=== PATIENT | female | born 1930 | race Caucasian/White ===

== ENCOUNTER 2016-12-04 09:36 | Inpatient (IN) | payer MEDICARE, MEDICAID ==
[~2016-12-04] VITALS: Ht 152.4 cm; Wt 146.2 kg
[~2016-12-04 09:36] MED LIST: ALEN70TA48 PO; AMLO2.5T PO; ATOR40TA28 PO; CITA20TA9 PO; FOLI1 PO; GABA-531 PO; LEVO100 PO; LINA290C PO; LISI-661 PO; LORA2TAB2 PO; OMEP20 PO; TRAZ-147 PO; VITAD1000 PO
[2016-12-04 10:22] LABS: BASOPHILS % (AUTO) 0.3 % (0.0-2.0); EOSINOPHILS % (AUTO) 0.3 % (1.0-6.0); HEMOGLOBIN 12.6 g/dL (12.0-16.0); LYMPHOCYTES # (AUTO) 1.4 K/uL (1.0-4.8); LYMPHOCYTES % (AUTO) 17.6 % (22.0-44.0); MEAN CORPUSCULAR HEMOGLOBIN 29.1 pg (26.0-34.0); MEAN CORPUSCULAR HGB CONC 32.4 G/dL (31.0-37.0); MEAN CORPUSCULAR VOLUME 90 fL (80-100); MONOCYTES # (AUTO) 0.3 K/uL (0.1-1.0); MONOCYTES % (AUTO) 4.5 % (2.0-9.0); NEUTROPHILS % (AUTO) 77.3 % (40.0-70.0); PLATELET COUNT (AUTO) 223 K/uL (150-450); RED BLOOD CELL COUNT(AUTO) 4.35 MIL/uL (4.00-5.20); RED CELL DISTRIBUTION WIDTH 16.5 % (11.5-14.5); WHITE BLOOD COUNT (AUTO) 7.7 K/uL (4.5-11.0)
[2016-12-04 10:31] LABS: ANION GAP 7 mmol/L (8-16); CALCIUM, TOTAL 8.6 mg/dL (8.8-10.5); CARBON DIOXIDE 28 mmol/L (22-29); CHLORIDE 104 mmol/L (98-107); CREATININE 0.89 mg/dL (0.60-1.30); GLOMERULAR FILTR. RATE CALC 60 mL/min (>60); POTASSIUM 4.2 mmol/L (3.5-5.1); SODIUM SERUM 139 mmol/L (136-145); UREA NITROGEN, BLOOD 19 mg/dL (7-18)
[2016-12-04 10:36] LABS: ALBUMIN 3.1 g/dL (3.4-5.0); ASPARTATE AMINOTRANSFERASE 10 U/L (15-37); BILIRUBIN,TOTAL 0.2 mg/dL (0.1-1.0); TOTAL PROTEIN, SERUM 6.8 g/dL (6.4-8.2)
[2016-12-04 10:45] LABS: ALANINE AMINOTRANSFERASE 16 U/L (12-78)
[2016-12-04] MEDS: LORazepam 2 MG TABLET PO PRN (11:59)
[2016-12-04 13:56] LABS: APPEARANCE,URINE CLOUDY (CLEAR); GLUCOSE, URINE (UA) NEGATIVE (NEGATIVE); KETONES,URINE NEGATIVE (NEGATIVE); LEUKOCYTE ESTERASE ,URINE NEGATIVE (NEGATIVE); OCCULT BLOOD,URINE MODERATE (NEGATIVE); PROTEIN,URINE NEGATIVE (NEGATIVE)
[2016-12-04 14:02] LABS: ADD UA MICROSCOPIC YES
[2016-12-04 14:07] LABS: RBC,URINE 0-2 /HPF (0-2)
[2016-12-04 14:08] LABS: SQUAMOUS EPITHELIAL CELL,UR Many /LPF (None Seen)
[2016-12-04] MEDS ORDERED: CIPROFLOXACIN HCL 250 MG TABLET PO ONE (15:15)
[2016-12-04 19:06] VITALS: BP 139/70
[2016-12-05 04:33] VITALS: BP 122/65
[2016-12-05 08:00] VITALS: BP 134/88
[2016-12-05] MEDS: CIPROFLOXACIN HCL 250 MG TABLET PO SCH ×2 (08:17→16:44)
[2016-12-05] MEDS: LORazepam 2 MG TABLET PO PRN ×2 (10:00→16:48)
[2016-12-05] MEDS: LOPERAMIDE HCL 2 MG CAPSULE PO PRN (11:07)
[2016-12-05 16:35] VITALS: BP 132/75
[2016-12-05] MEDS: ZOLPIDEM TARTRATE 10 MG TABLET PO PRN (21:59)
[2016-12-06 04:35] VITALS: BP 145/81
[2016-12-06 07:00] LABS: CHOL/HDL RATIO 2.8 (3.9-5.7); THYROID STIMULATING HORMONE 4.76 uIU/mL (0.36-3.74)
[2016-12-06 07:39] LABS: HEMOGLOBIN A1C 6.5 % (4.5-6.2)
[2016-12-06 08:00] VITALS: BP 136/83
[2016-12-06] MEDS: CIPROFLOXACIN HCL 250 MG TABLET PO SCH ×2 (08:44→16:26)
[2016-12-06] MEDS: SERTRALINE HCL 50 MG TABLET PO SCH (08:44)
[2016-12-06] MEDS: LORazepam 2 MG TABLET PO PRN ×2 (10:29→15:11)
[2016-12-06 17:58] VITALS: BP 147/73
[2016-12-06] MEDS: HALOPERIDOL 5 MG TABLET PO PRN (20:34)
[2016-12-07] MEDS: HALOPERIDOL 5 MG TABLET PO PRN ×2 (00:48→19:25)
[2016-12-07 00:50] VITALS: BP 157/57
[2016-12-07] MEDS: CIPROFLOXACIN HCL 250 MG TABLET PO SCH ×2 (08:11→16:07)
[2016-12-07] MEDS: SERTRALINE HCL 50 MG TABLET PO SCH (08:11)
[2016-12-07 09:20] VITALS: BP 149/84
[2016-12-07] MEDS: LORazepam 2 MG TABLET PO PRN (09:26)
[2016-12-07 16:39] VITALS: BP 145/88
[2016-12-08 08:01] VITALS: BP 162/61
[2016-12-08] MEDS: CIPROFLOXACIN HCL 250 MG TABLET PO SCH ×2 (08:31→16:15)
[2016-12-08] MEDS: SERTRALINE HCL 50 MG TABLET PO SCH (08:31)
[2016-12-08] MEDS: LORazepam 2 MG TABLET PO PRN ×2 (09:22→13:35)
[2016-12-08 16:31] VITALS: BP 147/90
[2016-12-09 03:25] VITALS: BP 139/96
[2016-12-09 04:00] VITALS: BP 137/95
[2016-12-09] MEDS: IBUPROFEN 400 MG TABLET PO PRN ×2 (05:30→09:57)
[2016-12-09 07:12] LABS: GLUCOSE,POINT OF CARE 141 MG/DL (70-110)
[2016-12-09 08:05] VITALS: BP 129/73
[2016-12-09] MEDS: CIPROFLOXACIN HCL 250 MG TABLET PO SCH ×2 (08:12→16:45)
[2016-12-09] MEDS: SERTRALINE HCL 50 MG TABLET PO SCH (08:12)
[2016-12-09 09:57] VITALS: BP 140/69
[2016-12-09] MEDS: LORazepam 2 MG TABLET PO PRN (10:24)
[2016-12-09 10:57] VITALS: BP 136/84
[2016-12-09 17:46] VITALS: BP 156/79
[2016-12-10 01:09] VITALS: BP 128/83
[2016-12-10] MEDS: IBUPROFEN 400 MG TABLET PO PRN ×3 (01:09→18:08)
[2016-12-10] MEDS: LORazepam 2 MG TABLET PO PRN ×3 (02:50→16:45)
[2016-12-10 05:17] LABS: GLUCOSE,POINT OF CARE 146 MG/DL (70-110)
[2016-12-10] MEDS: SERTRALINE HCL 50 MG TABLET PO SCH (08:19)
[2016-12-10] MEDS: CIPROFLOXACIN HCL 250 MG TABLET PO SCH ×2 (08:19→16:46)
[2016-12-10 09:58] VITALS: BP 140/70
[2016-12-10 16:27] VITALS: BP 122/52
[2016-12-10 18:07] VITALS: BP 138/80
[2016-12-10] MEDS: HALOPERIDOL 5 MG TABLET PO PRN (18:56)
[2016-12-11] MEDS: LORazepam 2 MG TABLET PO PRN ×3 (00:17→11:54)
[2016-12-11 01:08] VITALS: BP 128/69
[2016-12-11] MEDS: IBUPROFEN 400 MG TABLET PO PRN ×2 (03:55→11:54)
[2016-12-11 06:12] LABS: GLUCOSE,POINT OF CARE 111 MG/DL (70-110)
[2016-12-11] MEDS: CIPROFLOXACIN HCL 250 MG TABLET PO SCH ×2 (07:41→16:17)
[2016-12-11] MEDS: SERTRALINE HCL 50 MG TABLET PO SCH (07:42)
[2016-12-11] MEDS: ACETAMINOPHEN 325 MG TABLET PO PRN (07:42)
[2016-12-11 17:52] VITALS: BP 143/77
[2016-12-12 01:48] VITALS: BP 145/72
[2016-12-12] MEDS: IBUPROFEN 400 MG TABLET PO PRN ×2 (01:50→09:28)
[2016-12-12] MEDS: LORazepam 2 MG TABLET PO PRN ×3 (09:27→18:56)
[2016-12-12] MEDS: CIPROFLOXACIN HCL 250 MG TABLET PO SCH (09:29)
[2016-12-12] MEDS: SERTRALINE HCL 50 MG TABLET PO SCH (09:29)
[2016-12-12 09:30] VITALS: BP 153/79
[2016-12-12 13:41] VITALS: BP 154/69
[2016-12-12] MEDS: ACETAMINOPHEN 325 MG TABLET PO PRN (13:41)
[2016-12-12 16:19] VITALS: BP 142/84
[2016-12-12] MEDS: HALOPERIDOL 5 MG TABLET PO PRN (18:56)
[2016-12-13] MEDS: ZOLPIDEM TARTRATE 10 MG TABLET PO PRN ×2 (00:02→20:12)
[2016-12-13 02:42] VITALS: BP 145/80
[2016-12-13 05:27] LABS: GLUCOSE,POINT OF CARE 100 MG/DL (70-110)
[2016-12-13 08:30] VITALS: BP 136/63
[2016-12-13] MEDS: SERTRALINE HCL 50 MG TABLET PO SCH (08:34)
[2016-12-13] MEDS: IBUPROFEN 400 MG TABLET PO PRN (08:34)
[2016-12-13] MEDS: LORazepam 2 MG TABLET PO PRN ×2 (12:37→19:00)
[2016-12-13] MEDS: LOPERAMIDE HCL 2 MG CAPSULE PO PRN (16:05)
[2016-12-13 16:18] VITALS: BP 151/64
[2016-12-14 02:35] VITALS: BP 145/85
[2016-12-14 05:52] LABS: GLUCOSE,POINT OF CARE 110 MG/DL (70-110)
[2016-12-14] MEDS: SERTRALINE HCL 50 MG TABLET PO SCH (07:50)
[2016-12-14] MEDS: LORazepam 2 MG TABLET PO PRN ×2 (09:07→19:14)
[2016-12-14 09:30] VITALS: BP 153/76
[2016-12-14 17:00] VITALS: BP 146/73
[2016-12-15 03:52] VITALS: BP 138/76
[2016-12-15] MEDS: LORazepam 2 MG TABLET PO PRN ×3 (05:08→19:11)
[2016-12-15 06:08] LABS: GLUCOSE,POINT OF CARE 107 MG/DL (70-110)
[2016-12-15 09:19] VITALS: BP 133/69
[2016-12-15] MEDS: SERTRALINE HCL 50 MG TABLET PO SCH (09:23)
[2016-12-15 09:36] VITALS: BP 133/69
[2016-12-15] MEDS: IBUPROFEN 400 MG TABLET PO PRN (09:36)
[2016-12-15] MEDS: ACETAMINOPHEN 325 MG TABLET PO PRN (12:22)
[2016-12-15] MEDS: LOPERAMIDE HCL 2 MG CAPSULE PO PRN (15:20)
[2016-12-15 16:33] VITALS: BP 131/72
[2016-12-16] MEDS: LORazepam 2 MG TABLET PO PRN ×2 (00:08→07:46)
[2016-12-16 00:10] VITALS: BP 113/65
[2016-12-16 06:13] LABS: GLUCOSE,POINT OF CARE 104 MG/DL (70-110)
[2016-12-16 09:21] VITALS: BP 126/70
[2016-12-16] MEDS: SERTRALINE HCL 50 MG TABLET PO SCH (09:52)
[2016-12-16] MEDS: ACETAMINOPHEN 325 MG TABLET PO PRN ×2 (16:20→21:06)
[2016-12-16 16:30] VITALS: BP 108/71
[2016-12-16 17:20] VITALS: BP 110/78
[2016-12-16] MEDS: ZOLPIDEM TARTRATE 10 MG TABLET PO PRN (21:33)
[2016-12-17 01:40] VITALS: BP 133/61
[2016-12-17] MEDS: ACETAMINOPHEN 325 MG TABLET PO PRN (01:43)
[2016-12-17 06:22] LABS: GLUCOSE,POINT OF CARE 109 MG/DL (70-110)
[2016-12-17] MEDS: LORazepam 2 MG TABLET PO PRN ×2 (06:41→13:14)
[2016-12-17 08:13] VITALS: BP 136/72
[2016-12-17] MEDS: SERTRALINE HCL 50 MG TABLET PO SCH (09:33)
[2016-12-17 19:56] VITALS: BP 111/66
[2016-12-17] MEDS: ZOLPIDEM TARTRATE 10 MG TABLET PO PRN (21:27)
[2016-12-18 04:10] VITALS: BP 133/69
[2016-12-18] MEDS: LORazepam 2 MG TABLET PO PRN ×3 (04:12→16:50)
[2016-12-18 05:52] LABS: GLUCOSE,POINT OF CARE 116 MG/DL (70-110)
[2016-12-18] MEDS: SERTRALINE HCL 50 MG TABLET PO SCH (08:37)
[2016-12-18 09:21] VITALS: BP 109/54
[2016-12-18 16:18] VITALS: BP 132/62
[2016-12-18] MEDS: ZOLPIDEM TARTRATE 10 MG TABLET PO PRN (20:29)
[2016-12-19] MEDS: ZOLPIDEM TARTRATE 10 MG TABLET PO PRN (00:33)
[2016-12-19] MEDS: LORazepam 2 MG TABLET PO PRN ×3 (03:11→12:00)
[2016-12-19 04:07] VITALS: BP 124/60
[2016-12-19 05:22] LABS: GLUCOSE,POINT OF CARE 114 MG/DL (70-110)
[2016-12-19] MEDS: SERTRALINE HCL 50 MG TABLET PO SCH (07:47)
[2016-12-19 09:11] VITALS: BP 101/57
[2016-12-19] MEDS: IBUPROFEN 400 MG TABLET PO PRN (12:32)
[2016-12-19 13:31] VITALS: BP 139/94
[2016-12-19 13:32] VITALS: BP 139/94
[2016-12-19] MEDS ORDERED: SERT50TA12 PO (15:15)
[2016-12-19 16:24] VITALS: BP 124/59
== END 2016-12-19 17:15 | DRG 885 ==
LOC: EEVIPCON 09:40 → EMS 09:40 → 3EX 17:46
PROVIDERS: ADMIT Psychiatry & Neurology Child & Adolescent Psychiatry; ATTEND Psychiatry & Neurology Child & Adolescent Psychiatry
DX: F33.2 Major depressive disorder, recurrent severe without psychotic features (principal); R45.851 Suicidal ideations; N39.0 Urinary tract infection, site not specified; S52.501A Unspecified fracture of the lower end of right radius, initial encounter for closed fracture; S52.611A Displaced fracture of right ulna styloid process, initial encounter for closed fracture; I10 Essential (primary) hypertension; E78.5 Hyperlipidemia, unspecified; H26.9 Unspecified cataract; D64.9 Anemia, unspecified; R45.87 Impulsiveness; F03.90 Unspecified dementia, unspecified severity, without behavioral disturbance, psychotic disturbance, mood disturbance, and anxiety; W19.XXXA Unspecified fall, initial encounter; B96.20 Unspecified Escherichia coli [E. coli] as the cause of diseases classified elsewhere; F41.9 Anxiety disorder, unspecified; Z79.899 Other long term (current) drug therapy; Z63.4 Disappearance and death of family member; Y93.89 Activity, other specified; Y92.89 Other specified places as the place of occurrence of the external cause; Y99.8 Other external cause status
CPT/HCPCS: 70450; 82962; 83036; 83540; 83550; 84443; 87086; 93005; 93306; 97161; 97165; 99285; G0480